=== PATIENT | female | born 1950 | race Caucasian/White ===

== ENCOUNTER 2017-01-12 16:21 | Inpatient (IN) ==
--- NOTE | 2017-01-12 16:42 | Emergency Department Note ---
Disposition Clinical Impression: Community acquired pneumonia, Septic shock Disposition: Admitted As Inpatient Condition: Serious SOB HPI - General Chief Complaint: ED Shortness of Breath/Dyspnea Stated Complaint: sob Time Seen by Provider: 01/12/17 16:28 Source: EMS Limitations: no limitations - History of Present Illness 67 female presented with chief complaint of shortness of breath. Patient was brought here by EMS from urgent care due to having a O2 saturation of 70%. Patient states that her shortness of breath started 2 days ago, is progressively worse, with nonproductive cough and right-sided chest pain that is pleuritic in nature without radiation. She had nausea and 2 bouts of vomiting yesterday. She denies diaphoresis. She states she had a fever of 103 yesterday. She denies any history of blood clots, smoking, lung disease, cardiac disease. Patient is not on any medications. She does not have a primary care provider. She denies having this ever before. - Related Data Home Medications Medication Instructions Recorded Confirmed Tylenol Cold-Flu Severe Liq 10/29/16 10/29/16 Previous Rx's Medication Instructions Recorded Azithromycin 250 - 500 mg PO DAILY #6 tablet 10/29/16 Benzonatate [Tessalon] 200 mg PO TID PRN #30 capsule 10/29/16 Ipratropium/Albuterol Neb [Duoneb] 3 ml IH Q4HR PRN #50 vial.neb 10/29/16 Nebulizer Accessories [Pillow Mask] 1 each MC PRN PRN #1 each 10/29/16 Allergies Allergy/AdvReac Type Severity Reaction Status Date / Time No Known Allergies Allergy Verified 10/29/16 11:40 Review of Systems: Constitutional: Admits fever, denies chills HEENT: Denies headache, vision changes, neck pain, sore throat, rhinorrhea Heart: Admits right chest pain, denies palpitations Lungs: Admits to shortness of breath, cough, denies productive cough Abdomen: Denies abdominal pain. Reports nausea, vomiting Extremities: Denies swelling, pain Neuro: Denies numbness, and tingling Past Medical History - Past Medical History Medical history: Reports: non-contributory - Social History Smoking Status: Former smoker Smokeless Tobacco Status: No Alcohol use: Reports: none Drug use: Reports: none Physical Exam General: Alert and oriented to place time and situation. Moderate distress HEENT: Head atraumatic, normocephalic, EOMI, PERRLA, neck nontender to palpation , absent Lymphadenopathy, Moist Mucous Membranes, Heart: Regular, tachycardic, no murmur Lungs: Diffuse crackles bilaterally Abdomen: Soft nontender, nondistended positive bowel sounds Extremities: Absent pedal edema, Neuro: Cranial nerves II through XII intact, sensation equal bilaterally, strength upper and lower extremity 5/5, alert oriented 3 Vascular: Pedal and radialpulses 2 out of 4 - General Limitations: no limitations General appearance: alert Course Course Narrative: We will get CBC, BMP, troponin, EKG, lactic acid, chest x-ray. Most cores 1.5 for tachycardia. Patient is on supplemental oxygen saturating greater than 90%. - Reevaluation(s) Reevaluation #1: Patient's chest x-ray came back for extensive right lobar pneumonia. She has a bandemia of 18. She has a Creatinine 2.11. She has lactic acidosis of 4.5. Troponin is negative. Patient on presentation was given duo nebs, started on nasal cannula oxygen supplementation. However she had increased work of breathing and was transitioned to BiPAP. Her blood pressure decreases systolics 80. She was resuscitated with 3 L of fluid and now has a blood pressure of 110s to 120 systolic. Patient still remains tachycardic. She was started on vancomycin and Levaquin. Patient also had hypomagnesemia and was replaced with IV magnesium 1 g. Patient denies alcohol use. Patient is in septic shock and will require close attention. She has a [place] catheter for monitoring urine output. Hospitalist was contacted and patient was transferred to the service. Troponin is normal. Vital Signs Temperature 98.4 F 01/12/17 16:22 Pulse Rate 127 01/12/17 16:22 Respiratory Rate 22 01/12/17 16:22 Blood Pressure 104/60 01/12/17 16:22 O2 Sat by Pulse Oximetry 83 01/12/17 16:22 Temperature 99.5 F 01/12/17 20:19 Pulse Rate 112 01/12/17 20:19 Respiratory Rate 30 01/12/17 20:19 Blood Pressure 139/66 01/12/17 20:19 O2 Sat by Pulse Oximetry 95 01/12/17 20:19 Oxygen Delivery Oxygen Delivery Bipap Shortness of Breath/Dyspnea - Medical Records Medical records reviewed: Yes I reviewed the patient's medical records. - Lab Data Lab results reviewed: Yes I reviewed the patient's lab results. Result diagrams: 01/12/17 16:49 01/12/17 16:49 Lab Results 01/12/17 01/12/17 01/12/17 Range/Units 16:49 16:49 16:49 WBC 5.1 (4.3-11.1) K/mcL RBC 5.13 H (3.82-4.97) M/mcL Hgb 15.3 (11.5-15.4) g/dL Hct 46.4 H (35.3-44.9) % MCV 90.4 (83.0-100.0) fL MCH 29.8 (28.0-33.3) pg MCHC 33.0 (31.6-35.5) g/dL RDW 13.2 (11.5-14.5) % Plt Count 190 (140-400) K/mcL MPV 11.1 (9.4-12.4) fL Immature Gran % Test Not Performed Seg Neutrophils % 18.0 % Band Neutrophils % 18.0 H (0-4) % Lymphocytes % 34.0 % Monocytes % 2.0 % Eosinophils % Test Not Performed Basophils % Test Not Performed Metamyelocytes % 20.0 H (0) % Myelocytes % 8.0 H (0) % Neutrophils # 1.8 (1.6-8.9) K/mcL Lymphocytes # 1.7 (0.6-4.6) K/mcL Monocytes # 0.1 (0.0-1.3) K/mcL Eosinophils # Test Not Performed Basophils # Test Not Performed Reactive Lymphocytes Present A (Not Present) Platelet Estimate Normal (Normal) PT (9.4-12.1) Seconds INR APTT (26.0-36.0) Seconds ABG pH (7.32-7.45) pH Units ABG pCO2 (35-45) mmHg ABG pO2 (85-104) mmHg ABG HCO3 (21-27) mEQ/L ABG Total CO2 (20-26) mEq/L ABG O2 Saturation (95-98) % ABG Base Excess (-2.0 to 3.0) mEq/L Blood Gas Modality Inspired O2 % Sodium 139 (136-145) mEq/L Potassium 4.3 (3.5-4.5) mEq/L Chloride 103 (98-109) mEq/L Carbon Dioxide 21 (19-29) mEq/L BUN 32 H (7-20) mg/dL Creatinine 2.11 H (0.57-1.11) mg/dL Est GFR ( Amer) 29 L (> 60) Est GFR (Non-Af Amer) 24 L (> 60) BUN/Creatinine Ratio 15 (6-26) Glucose 138 H (70-99) mg/dL Calculated Osmolality 297 (280-300) Lactic Acid 4.6 H* (0.5-2.2) mmol/L Calcium 8.9 (8.6-10.8) mg/dL Phosphorus 5.9 H (2.3-4.7) mg/dL Magnesium 1.4 L (1.6-2.6) mg/dL Total Bilirubin 2.8 H (0.2-1.2) mg/dL Direct Bilirubin 1.0 H (0.0-0.5) mg/dL Indirect Bilirubin 1.8 H (0.0-1.2) mg/dL AST 17 (5-34) Units/L ALT 19 (0-55) Units/L Alkaline Phosphatase 42 (38-126) Units/L Troponin I (0-0.03) ng/mL B-Natriuretic Peptide (0-100) pg/mL Serum Total Protein 6.8 (6.0-8.3) g/dL Albumin 3.0 L (3.5-5.0) g/dL Globulin 3.8 H (2.4-3.5) g/dL Albumin/Globulin Ratio 0.8 L (1.1-2.2) 01/12/17 01/12/17 01/12/17 Range/Units 16:49 16:49 16:49 WBC (4.3-11.1) K/mcL RBC (3.82-4.97) M/mcL Hgb (11.5-15.4) g/dL Hct (35.3-44.9) % MCV (83.0-100.0) fL MCH (28.0-33.3) pg MCHC (31.6-35.5) g/dL RDW (11.5-14.5) % Plt Count (140-400) K/mcL MPV (9.4-12.4) fL Immature Gran % Seg Neutrophils % % Band Neutrophils % (0-4) % Lymphocytes % % Monocytes % % Eosinophils % Basophils % Metamyelocytes % (0) % Myelocytes % (0) % Neutrophils # (1.6-8.9) K/mcL Lymphocytes # (0.6-4.6) K/mcL Monocytes # (0.0-1.3) K/mcL Eosinophils # Basophils # Reactive Lymphocytes (Not Present) Platelet Estimate (Normal) PT 16.5 H (9.4-12.1) Seconds INR 1.5 APTT 32.3 (26.0-36.0) Seconds ABG pH (7.32-7.45) pH Units ABG pCO2 (35-45) mmHg ABG pO2 (85-104) mmHg ABG HCO3 (21-27) mEQ/L ABG Total CO2 (20-26) mEq/L ABG O2 Saturation (95-98) % ABG Base Excess (-2.0 to 3.0) mEq/L Blood Gas Modality Inspired O2 % Sodium (136-145) mEq/L Potassium (3.5-4.5) mEq/L Chloride (98-109) mEq/L Carbon Dioxide (19-29) mEq/L BUN (7-20) mg/dL Creatinine (0.57-1.11) mg/dL Est GFR ( Amer) (> 60) Est GFR (Non-Af Amer) (> 60) BUN/Creatinine Ratio (6-26) Glucose (70-99) mg/dL Calculated Osmolality (280-300) Lactic Acid (0.5-2.2) mmol/L Calcium (8.6-10.8) mg/dL Phosphorus (2.3-4.7) mg/dL Magnesium (1.6-2.6) mg/dL Total Bilirubin (0.2-1.2) mg/dL Direct Bilirubin (0.0-0.5) mg/dL Indirect Bilirubin (0.0-1.2) mg/dL AST (5-34) Units/L ALT (0-55) Units/L Alkaline Phosphatase (38-126) Units/L Troponin I 0.00 (0-0.03) ng/mL B-Natriuretic Peptide 313 H (0-100) pg/mL Serum Total Protein (6.0-8.3) g/dL Albumin (3.5-5.0) g/dL Globulin (2.4-3.5) g/dL Albumin/Globulin Ratio (1.1-2.2) 01/12/17 Range/Units 17:22 WBC (4.3-11.1) K/mcL RBC (3.82-4.97) M/mcL Hgb (11.5-15.4) g/dL Hct (35.3-44.9) % MCV (83.0-100.0) fL MCH (28.0-33.3) pg MCHC (31.6-35.5) g/dL RDW (11.5-14.5) % Plt Count (140-400) K/mcL MPV (9.4-12.4) fL Immature Gran % Seg Neutrophils % % Band Neutrophils % (0-4) % Lymphocytes % % Monocytes % % Eosinophils % Basophils % Metamyelocytes % (0) % Myelocytes % (0) % Neutrophils # (1.6-8.9) K/mcL Lymphocytes # (0.6-4.6) K/mcL Monocytes # (0.0-1.3) K/mcL Eosinophils # Basophils # Reactive Lymphocytes (Not Present) Platelet Estimate (Normal) PT (9.4-12.1) Seconds INR APTT (26.0-36.0) Seconds ABG pH 7.28 L (7.32-7.45) pH Units ABG pCO2 46 H (35-45) mmHg ABG pO2 70 L (85-104) mmHg ABG HCO3 21.6 (21-27) mEQ/L ABG Total CO2 23.0 (20-26) mEq/L ABG O2 Saturation 91 L (95-98) % ABG Base Excess -5.3 L (-2.0 to 3.0) mEq/L Blood Gas Modality [place]ASK Inspired O2 61 % Sodium (136-145) mEq/L Potassium (3.5-4.5) mEq/L Chloride (98-109) mEq/L Carbon Dioxide (19-29) mEq/L BUN (7-20) mg/dL Creatinine (0.57-1.11) mg/dL Est GFR ( Amer) (> 60) Est GFR (Non-Af Amer) (> 60) BUN/Creatinine Ratio (6-26) Glucose (70-99) mg/dL Calculated Osmolality (280-300) Lactic Acid (0.5-2.2) mmol/L Calcium (8.6-10.8) mg/dL Phosphorus (2.3-4.7) mg/dL Magnesium (1.6-2.6) mg/dL Total Bilirubin (0.2-1.2) mg/dL Direct Bilirubin (0.0-0.5) mg/dL Indirect Bilirubin (0.0-1.2) mg/dL AST (5-34) Units/L ALT (0-55) Units/L Alkaline Phosphatase (38-126) Units/L Troponin I (0-0.03) ng/mL B-Natriuretic Peptide (0-100) pg/mL Serum Total Protein (6.0-8.3) g/dL Albumin (3.5-5.0) g/dL Globulin (2.4-3.5) g/dL Albumin/Globulin Ratio (1.1-2.2) - Radiology Data Radiology results reviewed: Yes I reviewed the patient's radiology results. - EKG Data EKG attestation: Yes I reviewed and interpreted this EKG. EKG results narrative: EKG shows sinus tachycardia with Q waves in inferior leads. No previous EKG to compare. Attestation Statement - Attestation Attestation: I examined this patient and my medical decision-making was reviewed with the SUPERVISOR SPEECH/PA/Advanced Practice Nurse/Resident Physician. I agree with the documented findings, disposition and treatment plan as described except to the extent set forth below. 66-year-old female says ED from urgent care because of difficulty breathing. She says symptoms evolving since last night. She has had cough has been nonproductive. Temperature 102 at home. Right-sided chest pain as well. No vomiting or diarrhea. No joint pain or myalgias. No known ill exposures. No long distance travel. She went to urgent care today was found to have a pulse ox of 77% on room air. She was given DuoNeb treatments and sent directly to the ED. She subjectively reports feeling better. No significant past medical history She quit smoking 15 years ago. Patient is in mild to moderate respiratory distress, tachypnea, hypoxic. Her pressure down to 85/50. Oropharynx is clear mucous membranes dry. Neck is supple. Chest with coarse inspiratory rhonchi in the right lung falcon. Scattered biphasic wheezes. Cardiac exam tachycardic. Abdomen soft nondistended nontender. Extremities warm and dry. Hypotension responded to 3 L of crystalloid infusion. Lactate was elevated at 4.3. Chest x-ray with large right lung infiltrate. She was started on BiPAP to help maintain better oxygenation. She was given broad-spectrum antibiotics and will be admitted to ICU or [facility]. The high probability of a clinically significant, sudden or life threatening deterioration of the [cardiopulmonary] system(s) required my full and direct attention, intervention and personal management. The aggregate critical care time was [40] minutes. This time is in addition to time spent performing reported procedures but includes the following: [x] Data Review and interpretation [x] Patient assessment and monitoring of vital signs [x] Documentation [x] Medication orders and management
[2017-01-12 16:59] LABS: Hematocrit 46.4 % (35.3-44.9); Hemoglobin 15.3 g/dL (11.5-15.4); Mean Corpuscular Hemoglobin 29.8 pg (28.0-33.3); Mean Corpuscular Volume 90.4 fL (83.0-100.0); Mean Platelet Volume 11.1 fL (9.4-12.4); Platelet Count 190 K/mcL (140-400); Red Blood Count 5.13 M/mcL (3.82-4.97); Red Cell Distribution Width 13.2 % (11.5-14.5)
[2017-01-12] MEDS: 0.9 % Sodium Chloride 1,000 ML IVC SCH ×3 (17:07→21:46)
[2017-01-12 17:12] LABS: Calcium 8.9 mg/dL (8.6-10.8); Potassium 4.3 mEq/L (3.5-4.5)
[2017-01-12 17:20] LABS: INR 1.5; Prothrombin Time 16.5 Seconds (9.4-12.1)
[2017-01-12 17:23] LABS: Activated Partial Thrombo Time 32.3 Seconds (26.0-36.0)
[2017-01-12 17:26] LABS: Albumin/Globulin Ratio 0.8 (1.1-2.2); Bilirubin,Indirect 1.8 mg/dL (0.0-1.2); Bilirubin,Total 2.8 mg/dL (0.2-1.2); Globulin 3.8 g/dL (2.4-3.5); Magnesium 1.4 mg/dL (1.6-2.6); Phosphorous 5.9 mg/dL (2.3-4.7); Total Protein 6.8 g/dL (6.0-8.3)
[2017-01-12 17:28] LABS: ABG Base Excess -5.3 mEq/L (-2.0 to 3.0); ABG HCO3 21.6 mEQ/L (21-27); ABG Oxygen Saturation 91 % (95-98); ABG PCO2 46 mmHg (35-45); ABG PH 7.28 pH Units (7.32-7.45); ABG PO2 70 mmHg (85-104)
[2017-01-12 17:29] LABS: Blood Gas FiO2 61 %
[2017-01-12 17:38] LABS: Lymphocytes # 1.7 K/mcL (0.6-4.6); Monocytes # 0.1 K/mcL (0.0-1.3); Neutrophils # 1.8 K/mcL (1.6-8.9)
[2017-01-12 17:40] LABS: Platelet Estimate Normal (Normal)
[2017-01-12 17:45] LABS: Reactive Lymphocytes Present (Not Present)
[2017-01-12] MEDS ORDERED: Piperacillin/Tazobactam 3.375 GM in D5% in Water (Mini-Bag+) 100 ML IVPB ONE (17:53)
[2017-01-12] MEDS ORDERED: Vancomycin 1,000 MG in D5% in Water 250 ML IVPB ONE (17:53)
[2017-01-12] MEDS ORDERED: Magnesium Sulfate 1 GM in D5% in Water 100 ML IVPB ONE (18:08)
[2017-01-12] MEDS ORDERED: 0.9 % Sodium Chloride 1,000 ML IVC ONE (19:10)
[2017-01-12 19:25] LABS: Bilirubin,Urine Small (Negative); Blood,Urine Negative (Negative); Clarity,Urine Cloudy (Clear); Color,Urine Dark Yellow (Yellow); Glucose,Urine (UA) Normal (Normal); Ketones,Urine Negative (Negative); Leukocyte Esterase,Urine Negative (Negative); Nitrite,Urine Negative (Negative); PH,Urine 5.5 pH Units (5.0-8.0); Protein,Urine 30 mg/dL (Neg-Trace); Specific Gravity,Urine 1.025 (1.010-1.025); Urobilinogen,Urine Normal (Normal)
[2017-01-12 19:28] LABS: Squamous Epithelial Cell,Urine Many per lpf (None-Few)
[2017-01-12 19:42] LABS: Bacteria,Urine Few per hpf (None-Few); Granular Casts,Urine Few per lpf (None Seen); Hyaline Casts,Urine Moderate per lpf (None-Few)
[2017-01-12] MEDS ORDERED: Naloxone 0.4 MG/ML INJ IVP PRN (22:43)
[2017-01-12] MEDS ORDERED: Acetaminophen 325 MG TABLET PO PRN (22:43)
[2017-01-12] MEDS ORDERED: Levalbuterol 1 PUFF INHALER IH PRN (22:49)
--- NOTE | 2017-01-12 22:52 | Internal Med History&Physical ---
Date of Encounter: 01/12/17 Time of Encounter: 21:30 Assessment and Plan (1) Pneumonia Current visit: Yes Status: Acute Chest x-ray reported bilateral/multifocal pneumonia. Pt received vancomycin and zosyn in the ER. Will treat for community acquired pneumonia, with levofloxacin and ceftriaxone. We will obtain sputum cultures. Consider pulmonary consultation. Qualifiers: Pneumonia type: due to unspecified organism Laterality: bilateral Lung location: unspecified part of lung Qualified Code(s): J18.9 - Pneumonia, unspecified organism (2) Acute respiratory failure Current visit: Yes Status: Acute Likely due to pneumonia. Pt is on BiPAP therapy and is tolerating well. Pulmonary consult Qualifiers: Respiratory failure complication: hypoxia Qualified Code(s): J96.01 - Acute respiratory failure with hypoxia (3) Sepsis Current visit: Yes Status: Acute Due to pneumonia. Pt has lactic acidosis. Treated with IV fluids and antibiotics Qualifiers: Sepsis type: sepsis due to unspecified organism Qualified Code(s): A41.9 - Sepsis, unspecified organism (4) Lactic acid acidosis Current visit: Yes Status: Acute Likely due to pneumonia and sepsis. Lactic acid level is improving. (5) DIANA (acute kidney injury) Current visit: Yes Status: Acute Likely due to pneumonia/sepsis. Patient does not know of any prior kidney disease. Continue with IV fluids and monitor renal function. (6) Metabolic acidosis Current visit: Yes Status: Acute Likely due to lactic acidosis and acute kidney injury. Pt does not seem to have respiratory compensation, due to pneumonia (7) Hypomagnesemia Current visit: Yes Status: Acute Replenish and monitor (8) DVT prophylaxis Current visit: Yes Status: Acute SubQ Heparin Internal Medicine - H&P: HPI Chief complaint: Shortness of breath Admitted From: Emergency Dept Plans for Post Hospital Care: Home History of present illness: Ms. Estrada is a 66 year old female with no significant past medical history, presented with progressive shortness of breath that started 2 days ago, is progressively worse, with nonproductive cough and right-sided constant / pleuritic chest pain without radiation. She had nausea and 2 bouts of vomiting yesterday. She apparently had fever and chills yesterday. She denies abdominal pain, dysuria, hematuria, bowel problems. Patient is not on any home medications. She does not have a primary care provider. She was seen in the urgent care, where she had O2 sats of 77% and was brought to the ER by EMS. In the ER, CXR was thought to have extensive right sided pneumonia. Labs showed bandemia of 18, Creatinine 2.11, lactic acidosis of 4.5. Patient was given duo nebs, started on nasal cannula oxygen supplementation and transitioned to BiPAP. She was hypotensive with systolic blood pressure of 80 - she was resuscitated with 3 L of fluid. She was started on vancomycin and Levaquin. She is admitted to the hospitalist service for further management. Past Med Surg Social Fam HX - Past Medical History Medical history: non-contributory - Social History Smoking Status: Former smoker Smokeless Tobacco Status: No Alcohol use: none Drug use: none - Family History Father Adopted: No Living Status: Cause of : Breast6 cancer Hx Family Cardiac Disorders: No Hx Family Respiratory Disorders: No Hx Family Cancer: Yes Hx Family Genitourinary Disorders: No Hx Family Endocrine Disorder: No Hx Family Musculoskeletal Disorders: No Hx Family Neuromuscular Disorders: No Hx Family Neurologic Disorders: No Hx Family HEENT Disorders: No Hx Family Reproductive Disorders: No Hx Family Psychosocial Disorders: No Hx Family Medical Disorders: No Internal Medicine - H&P: Meds Azithromycin 250 - 500 mg PO DAILY #6 tablet 10/29/16 [Rx] Benzonatate [Tessalon] 200 mg PO TID PRN #30 capsule 10/29/16 [Rx] Ipratropium/Albuterol Neb [Duoneb] 3 ml IH Q4HR PRN #50 vial.neb 10/29/16 [Rx] Nebulizer Accessories [Pillow Mask] 1 each MC PRN PRN #1 each 10/29/16 [Rx] Tylenol Cold-Flu Severe Liq 10/29/16 [History] Allergies No Known Allergies Allergy (Verified 10/29/16 11:40) All Systems PM: A 10-system review of systems was performed and is negative for pertinent findings except as documented above in the HPI. - Constitutional Vitals: Temp Pulse Resp BP Pulse Ox 99.5 F 112 30 139/66 95 01/12/17 20:19 01/12/17 20:19 01/12/17 20:19 01/12/17 20:19 01/12/17 20:19 Exam: General: BiPAP in place. Not in acute distress at the time of my evaluation. HEENT: BiPAP in place. No conjunctival palor or scleral icterus Neck: No obvious neck swellings Lungs: Crackles in the right lower chest Cardiac: Regular rate and rhythm. No significant murmurs Abdomen: Soft, non tender. Bowel sounds present Neurological: Alert and oriented. No gross localizing deficits Psych: Not aggressive or agitated Extremities: no significant leg edema Skin: No generalized rash Internal Med - H&P Results - Labs CBC & Chem 7: 01/12/17 16:49 01/12/17 16:49 Labs: Urine 01/12/17 Range/Units 19:12 Urine Color Dark Yellow (Yellow) Urine Clarity Cloudy A (Clear) Urine pH 5.5 (5.0-8.0) pH Units Ur Specific [place] 1.025 (1.010-1.025) Urine Protein 30 H (Neg-Trace) mg/dL Urine Glucose (UA) Normal (Normal) mg/dL - EKG Data -: EKG Interpreted by Myself EKG shows normal: sinus rhythm Rate: tachycardia - EKG Data EKG comments: Q waves in III and AVF 01/13/17 01:01 - Impressions ITS Impressions Chest X-Ray 01/12/17 16:28 IMPRESSION: 1. Bilateral airspace disease concerning for multifocal pneumonia. Recommend chest radiograph 8 weeks to confirm resolution. D/ / Omero Parra MD / Omero Parra MD Interpreting Provider: Omero Parra MD
[2017-01-12] MEDS ORDERED: Vancomycin 1,500 MG in D5% in Water 250 ML IVPB SCH (23:00)
[2017-01-12] MEDS: Ipratropium/Albuterol Neb 3 ML IH SCH (23:12)
[2017-01-12] MEDS: Famotidine 20 MG/2 ML VIAL IVP SCH (23:59)
[2017-01-13] MEDS ORDERED: Piperacillin/Tazobactam 3.375 GM in D5% in Water (Mini-Bag+) 100 ML IVPB SCH
[2017-01-13] MEDS ORDERED: Vancomycin 500 MG in D5% in Water (Mini-Bag+) 100 ML IVPB ONE (00:30)
[2017-01-13] MEDS ORDERED: Vancomycin 1,500 MG in D5% in Water 250 ML IVPB SCH (00:30)
[2017-01-13] MEDS: *HR* Heparin 5,000 UNIT/ML VIAL SQ SCH ×4 (00:47→22:28)
[2017-01-13] MEDS ORDERED: Levofloxacin 500 MG/100 ML 500 MG/100 ML BAG IVPB ONE (01:20)
[2017-01-13 01:29] LABS: Hematocrit 41.1 % (35.3-44.9); Mean Corpuscular HGB Conc 32.8 g/dL (31.6-35.5); Mean Corpuscular Hemoglobin 29.8 pg (28.0-33.3); Mean Corpuscular Volume 90.7 fL (83.0-100.0); Platelet Count 138 K/mcL (140-400); Red Blood Count 4.53 M/mcL (3.82-4.97); Red Cell Distribution Width 13.3 % (11.5-14.5)
[2017-01-13 01:31] LABS: Hemoglobin 13.5 g/dL (11.5-15.4)
[2017-01-13 01:42] LABS: Magnesium 1.6 mg/dL (1.6-2.6); Potassium 4.1 mEq/L (3.5-4.5)
[2017-01-13 01:52] LABS: Large Platelets Present (Not Present); Lymphocytes # 0.6 K/mcL (0.6-4.6); Monocytes # 0.4 K/mcL (0.0-1.3); Neutrophils # 4.1 K/mcL (1.6-8.9); Platelet Estimate Slight Decrease (Normal); Reactive Lymphocytes Present (Not Present)
[2017-01-13] MEDS: Ipratropium/Albuterol Neb 3 ML IH SCH ×4 (03:44→22:26)
[2017-01-13] MEDS: Famotidine 20 MG/2 ML VIAL IVP SCH (08:22)
[2017-01-13] MEDS: 0.9 % Sodium Chloride 1,000 ML IVC SCH (11:00)
--- NOTE | 2017-01-13 11:43 | Pulmonology Consult Note ---
Date of Encounter: 01/13/17 Time of Encounter: 07:55 Assessment and Plan (1) Acute respiratory failure with hypoxia Current Visit: Yes Status: Acute Acute respiratory failure with hypoxia secondary to severe community-acquired pneumonia and development of ARDS. Continue antibiotic therapy directed towards treatment of community-acquired pathogens. Continue noninvasive ventilatory support. Discontinue IV fluids, empiric diuresis and addition of empiric steroids to hasten recovery. The patient may require intubation and invasive ventilatory support for clinical status does not improve over the next several hours. I reviewed the situation with the patient and family. Provision of DVT and ulcer prophylaxis as well. Giselle Leos Code(s): J96.01 - Acute respiratory failure with hypoxia SNOMED Code(s): 90911221, 030336117 History of Present Illness Consult date: 01/13/17 Chief complaint: Acute respiratory failure with hypoxia History of present illness: Cielo is a 66-year-old female noncigarette smoker does not have reportedly any well- defined chronic medical conditions. She admits to the development of fever possibly chills cough nausea and vomiting approximately 48-72 hours prior to her evaluation through the emergency room. The time of evaluation, the patient was hypoxic had an obvious increase in work of breathing. Radiographic evaluation disclosed presence of bilateral infiltrates. The patient was thought to have acute respiratory failure with hypoxia due to severe community- acquired pneumonia, evolving ARDS and sepsis. She was admitted to the monitored floor with noninvasive ventilatory support. At the time my evaluation, the patient remained to And required high FiO2 supplementation. Hence, I transferred the patient to the intensive care unit. Past Med Surg Social Fam HX - Past Medical History Medical history: non-contributory - Social History Smoking Status: Never smoker Smokeless Tobacco Status: No Alcohol use: none Drug use: none - Family History Father Adopted: No Living Status: Cause of : Breast6 cancer Hx Family Cardiac Disorders: No Hx Family Respiratory Disorders: No Hx Family Cancer: Yes Hx Family Genitourinary Disorders: No Hx Family Endocrine Disorder: No Hx Family Musculoskeletal Disorders: No Hx Family Neuromuscular Disorders: No Hx Family Neurologic Disorders: No Hx Family HEENT Disorders: No Hx Family Reproductive Disorders: No Hx Family Psychosocial Disorders: No Hx Family Medical Disorders: No Medications and Allergies Azithromycin 250 - 500 mg PO DAILY #6 tablet 10/29/16 [Rx] Benzonatate [Tessalon] 200 mg PO TID PRN #30 capsule 10/29/16 [Rx] Ipratropium/Albuterol Neb [Duoneb] 3 ml IH Q4HR PRN #50 vial.neb 10/29/16 [Rx] Nebulizer Accessories [Pillow Mask] 1 each MC PRN PRN #1 each 10/29/16 [Rx] Tylenol Cold-Flu Severe Liq 10/29/16 [History] Allergies No Known Allergies Allergy (Verified 10/29/16 11:40) All Systems: A 10-system review of systems was performed and is negative for pertinent findings except as documented above in the HPI. - Cardiovascular Cardiovascular: as per HPI Physical Examination Vital Signs: Vital Signs, Last 4 Hours Pulse Ox 01/13/17 08:28 93 General appearance: no acute distress, other (Obese female appears her stated age she is awake and alert she is in a moderate degree of respiratory distress, she is currently wearing a full face mask device for provision of noninvasive ventilatory support, vitals reviewed.) Eyes: nonicteric Neck: no JVD Effort: other (Moderately labored) Auscultation: bilateral: rales, rhonchi Cardiovascular: regular rate and rhythm Gastrointestinal: normoactive bowel sounds, non-distended Integumentary: normal Extremities: pink and warm, other (Intact pulses) Musculoskeletal: no deformities normal mental status, non-focal exam Results - Laboratory Findings CBC and BMP: 01/13/17 01:18 01/13/17 01:18 ABG ABG pH 7.28 pH Units (7.32-7.45) L 01/12/17 17:22 ABG pCO2 46 mmHg (35-45) H 01/12/17 17:22 ABG pO2 70 mmHg (85-104) L 01/12/17 17:22 ABG O2 Saturation 91 % (95-98) L 01/12/17 17:22 PT/INR, D-dimer PT 16.5 Seconds (9.4-12.1) H 01/12/17 16:49 Abnormal lab findings: Abnormal lab results Plt Count 138 K/mcL (140-400) L 01/13/17 01:18 Band Neutrophils % 16.0 % (0-4) H 01/13/17 01:18 Metamyelocytes % 16.0 % (0) H 01/13/17 01:18 Myelocytes % 8.0 % (0) H 01/12/17 16:49 Reactive Lymphocytes Present (Not Present) A 01/13/17 01:18 Platelet Estimate Slight Decrease (Normal) L 01/13/17 01:18 Large Platelets Present (Not Present) A 01/13/17 01:18 PT 16.5 Seconds (9.4-12.1) H 01/12/17 16:49 ABG pH 7.28 pH Units (7.32-7.45) L 01/12/17 17:22 ABG pCO2 46 mmHg (35-45) H 01/12/17 17:22 ABG pO2 70 mmHg (85-104) L 01/12/17 17:22 ABG O2 Saturation 91 % (95-98) L 01/12/17 17:22 ABG Base Excess -5.3 mEq/L (-2.0 to 3.0) L 01/12/17 17:22 BUN 34 mg/dL (7-20) H 01/13/17 01:18 Creatinine 1.39 mg/dL (0.57-1.11) H 01/13/17 01:18 Est GFR ( Amer) 46 (> 60) L 01/13/17 01:18 Est GFR (Non-Af Amer) 38 (> 60) L 01/13/17 01:18 Glucose 118 mg/dL (70-99) H 01/13/17 01:18 POC Glucose 94 (58-89) H 01/13/17 11:21 Calcium 8.0 mg/dL (8.6-10.8) L 01/13/17 01:18 Phosphorus 5.9 mg/dL (2.3-4.7) H 01/12/17 16:49 Total Bilirubin 2.8 mg/dL (0.2-1.2) H 01/12/17 16:49 Direct Bilirubin 1.0 mg/dL (0.0-0.5) H 01/12/17 16:49 Indirect Bilirubin 1.8 mg/dL (0.0-1.2) H 01/12/17 16:49 C-Reactive Protein 402 mg/L (Less than 5) H 01/13/17 01:18 B-Natriuretic Peptide 313 pg/mL (0-100) H 01/12/17 16:49 Albumin 3.0 g/dL (3.5-5.0) L 01/12/17 16:49 Globulin 3.8 g/dL (2.4-3.5) H 01/12/17 16:49 Albumin/Globulin Ratio 0.8 (1.1-2.2) L 01/12/17 16:49 Urine Clarity Cloudy (Clear) A 01/12/17 19:12 Urine Protein 30 mg/dL (Neg-Trace) H 01/12/17 19:12 Urine Bilirubin Small (Negative) H 01/12/17 19:12 Urine Microscopic RBC 3-5 per hpf (0-3) H 01/12/17 19:12 Urine Microscopic WBC 5-15 per hpf (0-3) H 01/12/17 19:12 Ur Squamous Epith Cells Many per lpf (None-Few) H 01/12/17 19:12 Hyaline Casts Moderate per lpf (None-Few) H 01/12/17 19:12 Granular Casts Few per lpf (None Seen) H 01/12/17 19:12 Ur Culture Indicated? YES (NO) A 01/12/17 19:12 - Diagnostic Findings Chest x-ray: other (Chest radiograph revealed bilateral alveolar interstitial infiltrates.) - Clinical Findings Intake & Output: Intake & Output 01/12/17 01/13/17 01/13/17 23:59 07:59 15:59 Intake Total 1452 / 2452 1360 / 1360 0 / 0 Output Total 600 / 600 300 / 300 Balance 1452 / 2452 760 / 760 -300 / -300 Weight 96.7 kg Consult Discharge Plan - Plan Referrals: NO,PCP [Primary Care Provider] -
[2017-01-13] MEDS: MethylPREDNISolone 40 MG/ML VIAL IVP SCH ×3 (12:18→23:44)
[2017-01-13] MEDS: Furosemide 40 MG/4 ML VIAL IVP SCH ×3 (12:52→20:17)
--- NOTE | 2017-01-13 17:55 | Electrocardiograph Report ---
[place] [id number] Test Date: 2017-01-12 Pat Name: Amanda Estrada Department: 105 Room: [facility] Gender: F Intake Nurse: MILI : [id number] Requested By: Aldo Spence Order Number: [id number] Reading MD: Angle Colvin Measurements Intervals Railroad Rate: 121 P: WA: 0 QRS: 32 QRSD: 92 T: 101 QT: 301 QTc: 373 Interpretive Statements SINUS TACHYCARDIA NONSPECIFIC T-WAVE ABNORMALITY Electronically Signed On 01-13-2017 17:53:23 EDT by Angle Colvin
[2017-01-14] MEDS ORDERED: Vancomycin 1,500 MG in D5% in Water 250 ML IVPB SCH (01:00)
[2017-01-14] MEDS: Levofloxacin 250 MG/50 ML 250 MG/50 ML BAG IVPB SCH ×2 (01:28→08:06)
[2017-01-14] MEDS: Ipratropium/Albuterol Neb 3 ML IH SCH ×4 (05:38→23:06)
[2017-01-14] MEDS: MethylPREDNISolone 40 MG/ML VIAL IVP SCH ×4 (05:43→23:45)
[2017-01-14] MEDS: *HR* Heparin 5,000 UNIT/ML VIAL SQ SCH ×3 (05:43→21:35)
--- NOTE | 2017-01-14 07:33 | Pulmonology Progress Note ---
Date of Encounter: 01/14/17 Time of Encounter: 07:33 Assessment and Plan (1) Acute respiratory failure with hypoxia Current Visit: Yes Status: Acute This is improving continue positive airway pressure support as needed wean FiO2 to keep saturation around 92% cont to diurese with lasix as tolerated. (2) Community acquired pneumonia Current Visit: Yes Status: Acute Patient is being treated for community acquired pneumonia the organism at this point remains unknown cultures are pending given improvement I do not feel that double coverage for CAP with Ceftriaxone and Levaquin is necessary and will stop Ceftriaxone. she is also receiving steroids for severe CAP. (3) DVT prophylaxis Current Visit: Yes Status: Acute Chemical DVT prophylaxis given Subjective Principal diagnosis: Pneumonia Interval history: Over the course of the morning patient's respiratory status is improved markedly and she has been able to tolerate time off bilevel positive airway pressure support. She is not in any distress at this time and says overall she is feeling much better. Objective PUL Vital signs: Last Vital Signs Temp 97 F L 01/14/17 04:19 Pulse 92 01/14/17 07:12 Resp 26 01/14/17 07:12 BP 149/85 01/14/17 07:12 Pulse Ox 96 01/14/17 07:12 General appearance: no acute distress, alert, other Eyes: nonicteric ENT: oropharynx moist Effort: mildly labored Auscultation: bilateral: diminished breath sounds Cardiovascular: regular rate and rhythm Gastrointestinal: normoactive bowel sounds Integumentary: normal Extremities: no cyanosis, no edema non-focal exam, pupils equal and round mood appropriate Results - Laboratory Findings CBC and BMP: 01/14/17 08:27 01/14/17 08:27 ABG ABG pH 7.28 pH Units (7.32-7.45) L 01/12/17 17:22 ABG pCO2 46 mmHg (35-45) H 01/12/17 17:22 ABG pO2 70 mmHg (85-104) L 01/12/17 17:22 ABG O2 Saturation 91 % (95-98) L 01/12/17 17:22 PT/INR, D-dimer PT 16.5 Seconds (9.4-12.1) H 01/12/17 16:49 Abnormal lab findings: Abnormal lab results Plt Count 138 K/mcL (140-400) L 01/13/17 01:18 Band Neutrophils % 16.0 % (0-4) H 01/13/17 01:18 Metamyelocytes % 16.0 % (0) H 01/13/17 01:18 Myelocytes % 8.0 % (0) H 01/12/17 16:49 Reactive Lymphocytes Present (Not Present) A 01/13/17 01:18 Platelet Estimate Slight Decrease (Normal) L 01/13/17 01:18 Large Platelets Present (Not Present) A 01/13/17 01:18 PT 16.5 Seconds (9.4-12.1) H 01/12/17 16:49 ABG pH 7.28 pH Units (7.32-7.45) L 01/12/17 17:22 ABG pCO2 46 mmHg (35-45) H 01/12/17 17:22 ABG pO2 70 mmHg (85-104) L 01/12/17 17:22 ABG O2 Saturation 91 % (95-98) L 01/12/17 17:22 ABG Base Excess -5.3 mEq/L (-2.0 to 3.0) L 01/12/17 17:22 BUN 34 mg/dL (7-20) H 01/13/17 01:18 Creatinine 1.39 mg/dL (0.57-1.11) H 01/13/17 01:18 Est GFR ( Amer) 46 (> 60) L 01/13/17 01:18 Est GFR (Non-Af Amer) 38 (> 60) L 01/13/17 01:18 Glucose 118 mg/dL (70-99) H 01/13/17 01:18 POC Glucose 114 (58-89) H 01/13/17 15:57 Calcium 8.0 mg/dL (8.6-10.8) L 01/13/17 01:18 Phosphorus 5.9 mg/dL (2.3-4.7) H 01/12/17 16:49 Total Bilirubin 2.8 mg/dL (0.2-1.2) H 01/12/17 16:49 Direct Bilirubin 1.0 mg/dL (0.0-0.5) H 01/12/17 16:49 Indirect Bilirubin 1.8 mg/dL (0.0-1.2) H 01/12/17 16:49 C-Reactive Protein 402 mg/L (Less than 5) H 01/13/17 01:18 B-Natriuretic Peptide 313 pg/mL (0-100) H 01/12/17 16:49 Albumin 3.0 g/dL (3.5-5.0) L 01/12/17 16:49 Globulin 3.8 g/dL (2.4-3.5) H 01/12/17 16:49 Albumin/Globulin Ratio 0.8 (1.1-2.2) L 01/12/17 16:49 Urine Clarity Cloudy (Clear) A 01/12/17 19:12 Urine Protein 30 mg/dL (Neg-Trace) H 01/12/17 19:12 Urine Bilirubin Small (Negative) H 01/12/17 19:12 Urine Microscopic RBC 3-5 per hpf (0-3) H 01/12/17 19:12 Urine Microscopic WBC 5-15 per hpf (0-3) H 01/12/17 19:12 Ur Squamous Epith Cells Many per lpf (None-Few) H 01/12/17 19:12 Hyaline Casts Moderate per lpf (None-Few) H 01/12/17 19:12 Granular Casts Few per lpf (None Seen) H 01/12/17 19:12 Ur Culture Indicated? YES (NO) A 01/12/17 19:12 - Microbiology Findings Microbiology Findings: Microbiology, Last 48 Hours 01/13/17 17:41 Influenza Types A,B Antigen (BRANDI) - Final Nasopharyngeal 01/12/17 19:12 Urine Culture - Final Urine,Clean Catch No growth. - Clinical Findings Intake & Output: Intake & Output 01/13/17 01/13/17 01/14/17 15:59 23:59 07:59 Intake Total 0 / 0 150 / 150 Output Total 1900 / 1900 600 / 600 1300 / 1300 Balance -1900 / -1900 -600 / -600 -1150 / -1150 Weight 96.7 kg 95.935 kg Consult Discharge Plan - Plan Referrals: NO,PCP [Primary Care Provider] -
[2017-01-14 07:44] LABS: Hematocrit 39.4 % (35.3-44.9); Hemoglobin 13.2 g/dL (11.5-15.4); Mean Corpuscular HGB Conc 33.5 g/dL (31.6-35.5); Mean Corpuscular Hemoglobin 30.3 pg (28.0-33.3); Mean Corpuscular Volume 90.6 fL (83.0-100.0); Mean Platelet Volume 11.6 fL (9.4-12.4); Platelet Count 168 K/mcL (140-400); Red Blood Count 4.35 M/mcL (3.82-4.97); Red Cell Distribution Width 13.4 % (11.5-14.5)
[2017-01-14] MEDS: Furosemide 40 MG/4 ML VIAL IVP SCH ×2 (08:06→16:44)
[2017-01-14] MEDS: Famotidine 20 MG/2 ML VIAL IVP SCH (08:06)
[2017-01-14 08:26] LABS: BUN/Creatinine Ratio 34 (6-26); Calcium 9.4 mg/dL (8.6-10.8); Carbon Dioxide 31 mEq/L (19-29); Chloride 101 mEq/L (98-109); Glucose 131 mg/dL (70-99); Lymphocytes # 1.3 K/mcL (0.6-4.6); Macrocytosis Present (Not Present); Monocytes # 0.8 K/mcL (0.0-1.3); Neutrophils # 10.7 K/mcL (1.6-8.9); Osmolality,Calculated 304 (280-300); Platelet Estimate Normal (Normal); Potassium 3.8 mEq/L (3.5-4.5); Sodium 142 mEq/L (136-145); eGFR For African Americans > 60 (> 60); eGFR For Non-African Americans 51 (> 60)
[2017-01-14 08:27] LABS: Blood Urea Nitrogen 37 mg/dL (7-20); Polychromasia 1+ (Not Present); Spherocytes 1+ (Not Present)
[2017-01-14 08:35] LABS: Hematocrit 40.6 % (35.3-44.9); Hemoglobin 13.6 g/dL (11.5-15.4); Mean Corpuscular HGB Conc 33.5 g/dL (31.6-35.5); Mean Corpuscular Volume 89.6 fL (83.0-100.0); Mean Platelet Volume 11.2 fL (9.4-12.4); Platelet Count 181 K/mcL (140-400); Red Blood Count 4.53 M/mcL (3.82-4.97); Red Cell Distribution Width 13.5 % (11.5-14.5)
[2017-01-14 08:49] LABS: Albumin/Globulin Ratio 0.5 (1.1-2.2); Globulin 4.6 g/dL (2.4-3.5); Potassium 3.8 mEq/L (3.5-4.5); Total Protein 6.9 g/dL (6.0-8.3)
[2017-01-14 08:50] LABS: Albumin 2.3 g/dL (3.5-5.0); Bilirubin,Total 0.9 mg/dL (0.2-1.2); Calcium 9.7 mg/dL (8.6-10.8)
[2017-01-15 04:42] LABS: Basophils # 0.1 K/mcL (0.0-0.2); Basophils % 0.8 %; Hemoglobin 13.3 g/dL (11.5-15.4); Lymphocytes # 1.3 K/mcL (0.6-4.6); Lymphocytes % 7.4 %; Mean Corpuscular HGB Conc 34.1 g/dL (31.6-35.5); Mean Corpuscular Hemoglobin 30.7 pg (28.0-33.3); Mean Corpuscular Volume 90.1 fL (83.0-100.0); Mean Platelet Volume 11.7 fL (9.4-12.4); Monocytes # 1.5 K/mcL (0.0-1.3); Monocytes % 8.8 %; Neutrophils # 13.3 K/mcL (1.6-8.9); Platelet Count 196 K/mcL (140-400); Red Blood Count 4.33 M/mcL (3.82-4.97); Red Cell Distribution Width 13.4 % (11.5-14.5)
[2017-01-15 05:05] LABS: Calcium 9.5 mg/dL (8.6-10.8)
[2017-01-15] MEDS: Ipratropium/Albuterol Neb 3 ML IH SCH ×4 (05:21→22:31)
[2017-01-15 06:01] LABS: Platelet Estimate Normal (Normal)
[2017-01-15] MEDS: *HR* Heparin 5,000 UNIT/ML VIAL SQ SCH ×3 (06:54→21:11)
[2017-01-15] MEDS: MethylPREDNISolone 40 MG/ML VIAL IVP SCH ×3 (06:54→17:12)
[2017-01-15] MEDS ORDERED: Piperacillin/Tazobactam 3.375 GM in D5% in Water (Mini-Bag+) 100 ML IVPB SCH (08:00)
[2017-01-15] MEDS: Furosemide 40 MG/4 ML VIAL IVP SCH (08:45)
[2017-01-15] MEDS ORDERED: Levofloxacin 750 MG/150 ML 750 MG/150 ML BAG IVPB SCH (09:00)
--- NOTE | 2017-01-15 09:59 | Pulmonology Progress Note ---
Date of Encounter: 01/15/17 Time of Encounter: 09:59 Assessment and Plan (1) Acute respiratory failure with hypoxia Current Visit: Yes Status: Acute This is improving continue positive airway pressure support as needed wean FiO2 to keep saturation around 92% hold lasix today PAP at night as tolerated (2) Community acquired pneumonia Current Visit: Yes Status: Acute Patient is being treated for community acquired pneumonia the organism at this point remains unknown cultures are pending given improvement Cont levaquin to complete 7 day course taper steroids over next 48hours (this is the likely cause of her persistent leuckocytosis (3) DVT prophylaxis Current Visit: Yes Status: Acute Chemical DVT prophylaxis given Patient is stable for transfer from ICU to medical/telemetry bed for ongoing care I called report to the admitting hospitalist Dr. Mckeon Subjective Principal diagnosis: Pneumonia Interval history: Patient did well overnight she was resting comfortably when I visited with her this morning she did wear positive airway pressure overnight but saturations of inappropriate on nasal cannula still requiring fairly high levels of O2 but work of breathing is no increased. Objective PUL Vital signs: Last Vital Signs Temp 96.6 F L 01/15/17 07:54 Pulse 94 01/15/17 09:00 Resp 20 01/15/17 09:00 BP 149/91 01/15/17 09:00 Pulse Ox 94 01/15/17 09:00 General appearance: no acute distress Auscultation: bilateral: diminished breath sounds Cardiovascular: regular rate and rhythm Integumentary: normal Extremities: no edema normal mental status, non-focal exam Results - Laboratory Findings CBC and BMP: 01/15/17 03:18 01/15/17 03:18 ABG ABG pH 7.28 pH Units (7.32-7.45) L 01/12/17 17:22 ABG pCO2 46 mmHg (35-45) H 01/12/17 17:22 ABG pO2 70 mmHg (85-104) L 01/12/17 17:22 ABG O2 Saturation 91 % (95-98) L 01/12/17 17:22 PT/INR, D-dimer PT 16.5 Seconds (9.4-12.1) H 01/12/17 16:49 Abnormal lab findings: Abnormal lab results WBC 17.0 K/mcL (4.3-11.1) H 01/15/17 03:18 Immature Gran % 5.0 % (0-4) H 01/15/17 03:18 Band Neutrophils % 12.0 % (0-4) H 01/14/17 07:26 Metamyelocytes % 16.0 % (0) H 01/13/17 01:18 Myelocytes % 8.0 % (0) H 01/12/17 16:49 Neutrophils # 13.3 K/mcL (1.6-8.9) H 01/15/17 03:18 Monocytes # 1.5 K/mcL (0.0-1.3) H 01/15/17 03:18 Reactive Lymphocytes Present (Not Present) A 01/13/17 01:18 Large Platelets Present (Not Present) A 01/13/17 01:18 Polychromasia 1+ (Not Present) A 01/14/17 07:26 Macrocytosis Present (Not Present) A 01/14/17 07:26 Spherocytes 1+ (Not Present) A 01/14/17 07:26 PT 16.5 Seconds (9.4-12.1) H 01/12/17 16:49 ABG pH 7.28 pH Units (7.32-7.45) L 01/12/17 17:22 ABG pCO2 46 mmHg (35-45) H 01/12/17 17:22 ABG pO2 70 mmHg (85-104) L 01/12/17 17:22 ABG O2 Saturation 91 % (95-98) L 01/12/17 17:22 ABG Base Excess -5.3 mEq/L (-2.0 to 3.0) L 01/12/17 17:22 Potassium 3.0 mEq/L (3.5-4.5) L 01/15/17 03:18 Carbon Dioxide 34 mEq/L (19-29) H 01/15/17 03:18 BUN 50 mg/dL (7-20) H D 01/15/17 03:18 Est GFR (Non-Af Amer) 49 (> 60) L 01/15/17 03:18 BUN/Creatinine Ratio 45 (6-26) H 01/15/17 03:18 Glucose 149 mg/dL (70-99) H 01/15/17 03:18 POC Glucose 114 (58-89) H 01/13/17 15:57 Calculated Osmolality 316 (280-300) H 01/15/17 03:18 Phosphorus 5.9 mg/dL (2.3-4.7) H 01/12/17 16:49 Direct Bilirubin 1.0 mg/dL (0.0-0.5) H 01/12/17 16:49 Indirect Bilirubin 1.8 mg/dL (0.0-1.2) H 01/12/17 16:49 C-Reactive Protein 402 mg/L (Less than 5) H 01/13/17 01:18 B-Natriuretic Peptide 313 pg/mL (0-100) H 01/12/17 16:49 Albumin 2.3 g/dL (3.5-5.0) L D 01/14/17 08:27 Globulin 4.6 g/dL (2.4-3.5) H 01/14/17 08:27 Albumin/Globulin Ratio 0.5 (1.1-2.2) L 01/14/17 08:27 Urine Clarity Cloudy (Clear) A 01/12/17 19:12 Urine Protein 30 mg/dL (Neg-Trace) H 01/12/17 19:12 Urine Bilirubin Small (Negative) H 01/12/17 19:12 Urine Microscopic RBC 3-5 per hpf (0-3) H 01/12/17 19:12 Urine Microscopic WBC 5-15 per hpf (0-3) H 01/12/17 19:12 Ur Squamous Epith Cells Many per lpf (None-Few) H 01/12/17 19:12 Hyaline Casts Moderate per lpf (None-Few) H 01/12/17 19:12 Granular Casts Few per lpf (None Seen) H 01/12/17 19:12 Ur Culture Indicated? YES (NO) A 01/12/17 19:12 - Microbiology Findings Microbiology Findings: Microbiology, Last 48 Hours 01/13/17 17:41 Influenza Types A,B Antigen (BRANDI) - Final Nasopharyngeal 01/12/17 19:12 Urine Culture - Final Urine,Clean Catch No growth. - Clinical Findings Intake & Output: Intake & Output 01/14/17 01/15/17 01/15/17 23:59 07:59 15:59 Intake Total 200 / 200 Output Total 1300 / 1300 550 / 550 Balance -1100 / -1100 -550 / -550 Weight 93.61 kg Consult Discharge Plan - Plan Referrals: NO,PCP [Primary Care Provider] -
[2017-01-15] MEDS ORDERED: Levalbuterol 1 PUFF INHALER IH PRN (10:04)
[2017-01-15] MEDS ORDERED: Acetaminophen 325 MG TABLET PO PRN (10:04)
[2017-01-15] MEDS ORDERED: Naloxone 0.4 MG/ML INJ IVP PRN (10:04)
[2017-01-15] MEDS ORDERED: Furosemide 40 MG/4 ML VIAL IVP SCH (17:00)
[2017-01-16] MEDS: MethylPREDNISolone 40 MG/ML VIAL IVP SCH ×4 (00:02→16:50)
[2017-01-16] MEDS: Ipratropium/Albuterol Neb 3 ML IH SCH ×4 (04:31→22:34)
[2017-01-16] MEDS: *HR* Heparin 5,000 UNIT/ML VIAL SQ SCH ×3 (05:02→22:14)
[2017-01-16 07:42] LABS: BUN/Creatinine Ratio 53 (6-26); Blood Urea Nitrogen 56 mg/dL (7-20); Carbon Dioxide 39 mEq/L (19-29); Chloride 96 mEq/L (98-109); Glucose 214 mg/dL (70-99); Magnesium 2.5 mg/dL (1.6-2.6); Osmolality,Calculated 316 (280-300); Potassium 2.9 mEq/L (3.5-4.5); Sodium 142 mEq/L (136-145); eGFR For African Americans > 60 (> 60); eGFR For Non-African Americans 53 (> 60)
[2017-01-16 07:44] LABS: Hemoglobin 13.3 g/dL (11.5-15.4); Mean Corpuscular HGB Conc 33.3 g/dL (31.6-35.5); Mean Corpuscular Hemoglobin 29.5 pg (28.0-33.3); Mean Corpuscular Volume 88.7 fL (83.0-100.0); Mean Platelet Volume 10.9 fL (9.4-12.4); Platelet Count 209 K/mcL (140-400); Red Blood Count 4.51 M/mcL (3.82-4.97); Red Cell Distribution Width 13.7 % (11.5-14.5)
[2017-01-16 08:31] LABS: C-Reactive Protein 124 mg/L (Less than 5)
[2017-01-16] MEDS ORDERED: Potassium Chloride 40 MEQ, Lidocaine 1% 2 ML in D5% in Water 500 ML IVPB ONE (08:35)
[2017-01-16] MEDS: Levofloxacin 750 MG/150 ML 750 MG/150 ML BAG IVPB SCH (08:37)
[2017-01-16 08:43] LABS: Lymphocytes # 2.5 K/mcL (0.6-4.6); Monocytes # 1.3 K/mcL (0.0-1.3); Neutrophils # 11.9 K/mcL (1.6-8.9); Platelet Estimate Normal (Normal); Reactive Lymphocytes Present (Not Present)
[2017-01-16 09:18] LABS: Hemoglobin A1C 6.1 %
[2017-01-16] MEDS ORDERED: *HR* Dextrose 50 % in Water (Syg) 50 ML SYRINGE IVP PRN (13:06)
[2017-01-16] MEDS ORDERED: Albuterol 2.5 MG/3 ML NEBULIZER IH PRN (13:06)
[2017-01-16] MEDS ORDERED: Dextrose Gel 15 GM PO PRN ×2 (13:06)
[2017-01-16] MEDS ORDERED: D5% in Water 1,000 ML IVC PRN (13:06)
--- NOTE | 2017-01-16 14:55 | Internal Med Progress Note ---
Date of Encounter: 01/16/17 Time of Encounter: 12:22 - Assessment and plan (1) Acute respiratory failure with hypoxia Current Visit: Yes Status: Acute Assessment and plan: Likely secondary to PNA Respiratory status improving will continue systemic steroids and bronchodilator support patient has extensive smoking history (25+years, quit 15years ago), may have underlying undiagnosed COPD, will benefit from outpatient PFTs continue abx O2 supplementation as needed monitor O2 sat (2) Community acquired pneumonia Current Visit: Yes Status: Acute Assessment and plan: Plan as listed above (3) Hyperglycemia Current Visit: Yes Status: Acute Assessment and plan: Likely secondary to steroids A1C: 6.1 will start ss insulin while on steroid therapy inpatient closely monitor FS and BG (4) Hypokalemia Current Visit: Yes Status: Acute Assessment and plan: K supplemented continue to monitor electrolytes and replace as needed (5) DIANA (acute kidney injury) Current Visit: Yes Status: Resolved Assessment and plan: Renal function at baseline continue to monitor (6) DVT prophylaxis Current Visit: Yes Status: Acute Assessment and plan: Heparin SQ - Subjective Interval history: Patient seen and examined with family present at bedside. Patient resting in bed and reports of feeling better compared to previous day. She is currently saturating well on nasal cannula. She was transferred to the floor from the ICU yesterday evening. No overnight issues reported. - Constitutional Vitals: Temp Pulse Resp BP Pulse Ox 98.1 F 106 20 135/85 90 01/16/17 11:46 01/16/17 11:46 01/16/17 11:46 01/16/17 11:46 01/16/17 11:46 General appearance: Present: A&O X 3, no acute distress, obese, answers questions appropriately - Head Head exam: Present: atraumatic, normocephalic - Respiratory Respiratory exam: Present: decreased breath sounds (decreased inspiratory effort ). Absent: respiratory distress, wheezes - Cardiovascular Cardiovascular exam: Present: RRR, +S1, +S2. Absent: diastolic murmur, gallop, rubs, systolic murmur - GI/Abdominal GI/Abdominal exam: Present: normal bowel sounds, soft, no peritoneal signs. Absent: distended, tenderness - Extremities Exam Extremities exam: Present: warm, radial pulses palpable and symetrical. Absent : calf tenderness, cyanotic, pedal edema - Neurological Exam Neurological exam: Present: alert, oriented X3 - Psychiatric Psychiatric exam: Present: normal affect, normal mood Internal Medicine: Result - Labs CBC & Chem 7: 01/16/17 07:17 01/16/17 07:17 Labs: Short CBC 01/16/17 Range/Units 07:17 WBC 16.8 H (4.3-11.1) K/mcL Hgb 13.3 (11.5-15.4) g/dL Hct 40.0 (35.3-44.9) % Plt Count 209 (140-400) K/mcL Neutrophils # 11.9 H (1.6-8.9) K/mcL BMP 01/16/17 07:17 Sodium 142 Potassium 2.9 L Chloride 96 L Carbon Dioxide 39 H BUN 56 H Creatinine 1.05 Glucose 214 H Calcium 9.0 - ABG Interpretation ABG results: ABG ABG pH 7.28 pH Units (7.32-7.45) L 01/12/17 17:22 ABG pCO2 46 mmHg (35-45) H 01/12/17 17:22 ABG pO2 70 mmHg (85-104) L 01/12/17 17:22 ABG O2 Saturation 91 % (95-98) L 01/12/17 17:22 PT/INR, D-dimer PT 16.5 Seconds (9.4-12.1) H 01/12/17 16:49 Consult Discharge Plan - Plan Referrals: NO,PCP [Primary Care Provider] -
[2017-01-16] MEDS: Insulin LISPRO 300 UNITS/3 ML VIAL SQ SCH ×2 (16:51→22:15)
[2017-01-16] MEDS ORDERED: Simethicone 80 MG TAB.CHEW PO PRN (21:25)
[2017-01-17] MEDS: MethylPREDNISolone 40 MG/ML VIAL IVP SCH ×4 (00:50→16:59)
[2017-01-17 03:19] LABS: Hematocrit 41.5 % (35.3-44.9); Hemoglobin 13.5 g/dL (11.5-15.4); Mean Corpuscular HGB Conc 32.5 g/dL (31.6-35.5); Mean Corpuscular Hemoglobin 29.7 pg (28.0-33.3); Mean Corpuscular Volume 91.4 fL (83.0-100.0); Mean Platelet Volume 11.2 fL (9.4-12.4); Platelet Count 205 K/mcL (140-400); Red Blood Count 4.54 M/mcL (3.82-4.97); Red Cell Distribution Width 14.3 % (11.5-14.5)
[2017-01-17 03:33] LABS: BUN/Creatinine Ratio 42 (6-26); Calcium 8.9 mg/dL (8.6-10.8); Carbon Dioxide 36 mEq/L (19-29); Chloride 101 mEq/L (98-109); Glucose 208 mg/dL (70-99); Magnesium 2.6 mg/dL (1.6-2.6); Osmolality,Calculated 315 (280-300); Phosphorous 3.4 mg/dL (2.3-4.7); Potassium 3.6 mEq/L (3.5-4.5); Sodium 144 mEq/L (136-145); eGFR For African Americans > 60 (> 60); eGFR For Non-African Americans 53 (> 60)
[2017-01-17 03:35] LABS: Blood Urea Nitrogen 44 mg/dL (7-20)
[2017-01-17 03:51] LABS: Lymphocytes # 4.4 K/mcL (0.6-4.6); Neutrophils # 13.7 K/mcL (1.6-8.9); Platelet Estimate Normal (Normal)
[2017-01-17 03:52] LABS: Reactive Lymphocytes Present (Not Present)
[2017-01-17] MEDS: Ipratropium/Albuterol Neb 3 ML IH SCH ×4 (04:41→22:50)
[2017-01-17] MEDS: *HR* Heparin 5,000 UNIT/ML VIAL SQ SCH ×3 (06:18→21:11)
[2017-01-17] MEDS: Insulin LISPRO 300 UNITS/3 ML VIAL SQ SCH ×4 (09:06→21:12)
[2017-01-17] MEDS: Levofloxacin 750 MG/150 ML 750 MG/150 ML BAG IVPB SCH (09:07)
[2017-01-17] MEDS ORDERED: Simethicone 80 MG TAB.CHEW PO PRN (09:25)
--- NOTE | 2017-01-17 13:00 | Internal Med Progress Note ---
Date of Encounter: 01/17/17 Time of Encounter: 12:58 - Assessment and plan (1) Acute respiratory failure with hypoxia Current Visit: Yes Status: Acute Assessment and plan: Likely secondary to PNA Respiratory status improving will continue systemic steroids and bronchodilator support, decreased to Solumedrol 40mg IV q12h patient has extensive smoking history (25+years, quit 15years ago), may have underlying undiagnosed COPD, will benefit from outpatient PFTs continue abx O2 supplementation as needed monitor O2 sat (2) Community acquired pneumonia Current Visit: Yes Status: Acute Assessment and plan: Plan as listed above worsening leukocytosis likely secondary to steroids clinically improving CXR shows improvement pt encouraged to use incentive spirometry (3) Hyperglycemia Current Visit: Yes Status: Acute Assessment and plan: Likely secondary to steroids A1C: 6.1 Continue ss insulin while on steroid therapy inpatient closely monitor FS and BG (4) Hypokalemia Current Visit: Yes Status: Resolved (5) DIANA (acute kidney injury) Current Visit: Yes Status: Resolved (6) DVT prophylaxis Current Visit: Yes Status: Acute Assessment and plan: Heparin SQ - Subjective Interval history: Patient seen and examined with family present at bedside. Patient resting in bed and reports of feeling better compared to previous day. She is currently saturating well on nasal cannula. Reports of mild dyspepsia and requests Pepcid which she takes at home. No overnight issues were reported. - Constitutional Vitals: Temp Pulse Resp BP Pulse Ox 98.0 F 93 17 145/79 92 01/17/17 11:42 01/17/17 11:42 01/17/17 11:42 01/17/17 11:42 01/17/17 11:42 General appearance: Present: A&O X 3, no acute distress, obese, answers questions appropriately - Head Head exam: Present: atraumatic, normocephalic - Eye Eye exam: Present: normal appearance, conjuntiva pink, sclera anicteric - Respiratory Respiratory exam: Present: decreased breath sounds. Absent: respiratory distress, tachypnea - Cardiovascular Cardiovascular exam: Present: RRR, +S1, +S2. Absent: diastolic murmur, gallop, rubs, systolic murmur - GI/Abdominal GI/Abdominal exam: Present: normal bowel sounds, soft, no peritoneal signs. Absent: distended, tenderness - Extremities Exam Extremities exam: Present: warm, radial pulses palpable and symetrical. Absent : calf tenderness, pedal edema - Neurological Exam Neurological exam: Present: alert, oriented X3 - Psychiatric Psychiatric exam: Present: normal affect, normal mood Internal Medicine: Result - Labs CBC & Chem 7: 01/17/17 03:03 01/17/17 03:03 Labs: Short CBC 01/17/17 Range/Units 03:03 WBC 20.2 H (4.3-11.1) K/mcL Hgb 13.5 (11.5-15.4) g/dL Hct 41.5 (35.3-44.9) % Plt Count 205 (140-400) K/mcL Neutrophils # 13.7 H (1.6-8.9) K/mcL BMP 01/17/17 03:03 Sodium 144 Potassium 3.6 Chloride 101 Carbon Dioxide 36 H BUN 44 H D Creatinine 1.04 Glucose 208 H Calcium 8.9 - ABG Interpretation ABG results: ABG ABG pH 7.28 pH Units (7.32-7.45) L 01/12/17 17:22 ABG pCO2 46 mmHg (35-45) H 01/12/17 17:22 ABG pO2 70 mmHg (85-104) L 01/12/17 17:22 ABG O2 Saturation 91 % (95-98) L 01/12/17 17:22 PT/INR, D-dimer PT 16.5 Seconds (9.4-12.1) H 01/12/17 16:49 - Impressions Impressions Chest X-Ray 01/17/17 07:00 IMPRESSION: Continued improved aeration in the right lung with decreased right upper lobe opacity. Continued radiographic follow-up recommended to ensure resolution. D/ / Iraida Morales MD / Iraida Morales MD Interpreting Provider: Iraida Morales MD Consult Discharge Plan - Plan Referrals: Katherin Car MD [Partnered Physician] - 02/22/17 9:30 am (Please follow up as schedule to get established for your PCP ) NO,PCP [Primary Care Provider] -
[2017-01-17] MEDS: Famotidine 20 MG TABLET PO SCH (21:12)
[2017-01-18] MEDS: Ipratropium/Albuterol Neb 3 ML IH SCH ×4 (04:29→22:20)
[2017-01-18] MEDS: MethylPREDNISolone 40 MG/ML VIAL IVP SCH ×2 (05:03→16:33)
[2017-01-18] MEDS: *HR* Heparin 5,000 UNIT/ML VIAL SQ SCH ×3 (05:03→21:31)
[2017-01-18 05:17] LABS: Hematocrit 42.9 % (35.3-44.9); Hemoglobin 13.4 g/dL (11.5-15.4); Mean Corpuscular HGB Conc 31.2 g/dL (31.6-35.5); Mean Corpuscular Hemoglobin 28.9 pg (28.0-33.3); Mean Corpuscular Volume 92.7 fL (83.0-100.0); Nucleated Red Blood Cells 0.1 /100 WBC (0); Platelet Count 204 K/mcL (140-400); Red Blood Count 4.63 M/mcL (3.82-4.97); Red Cell Distribution Width 14.5 % (11.5-14.5)
[2017-01-18 05:40] LABS: BUN/Creatinine Ratio 46 (6-26); Blood Urea Nitrogen 39 mg/dL (7-20); Calcium 8.7 mg/dL (8.6-10.8); Carbon Dioxide 35 mEq/L (19-29); Chloride 104 mEq/L (98-109); Glucose 153 mg/dL (70-99); Magnesium 2.3 mg/dL (1.6-2.6); Osmolality,Calculated 316 (280-300); Potassium 3.6 mEq/L (3.5-4.5); Sodium 147 mEq/L (136-145); eGFR For African Americans > 60 (> 60); eGFR For Non-African Americans > 60 (> 60)
[2017-01-18 05:48] LABS: Lymphocytes # 3.3 K/mcL (0.6-4.6); Monocytes # 1.5 K/mcL (0.0-1.3); Neutrophils # 15.5 K/mcL (1.6-8.9); Platelet Estimate Normal (Normal); Reactive Lymphocytes Present (Not Present)
[2017-01-18] MEDS: Famotidine 20 MG TABLET PO SCH ×2 (08:50→21:31)
[2017-01-18] MEDS: Levofloxacin 750 MG/150 ML 750 MG/150 ML BAG IVPB SCH (08:51)
[2017-01-18] MEDS: Insulin LISPRO 300 UNITS/3 ML VIAL SQ SCH ×4 (08:52→21:31)
--- NOTE | 2017-01-18 13:15 | Internal Med Progress Note ---
Date of Encounter: 01/18/17 Time of Encounter: 10:25 - Assessment and plan (1) Acute respiratory failure with hypoxia Current Visit: Yes Status: Acute Assessment and plan: Likely secondary to PNA Respiratory status improving will continue systemic steroids and bronchodilator support, decreased to Solumedrol 40mg IV q12h, will start Prednison in am patient has extensive smoking history (25+years, quit 15years ago), may have underlying undiagnosed COPD, will benefit from outpatient PFTs continue abx O2 supplementation as needed monitor O2 sat (2) Community acquired pneumonia Current Visit: Yes Status: Acute Assessment and plan: Plan as listed above worsening leukocytosis likely secondary to steroids clinically improving CXR shows improvement pt encouraged to use incentive spirometry (3) Hyperglycemia Current Visit: Yes Status: Acute Assessment and plan: Likely secondary to steroids A1C: 6.1 Continue ss insulin while on steroid therapy inpatient closely monitor FS and BG (4) Hypokalemia Current Visit: Yes Status: Resolved (5) DIANA (acute kidney injury) Current Visit: Yes Status: Resolved Assessment and plan: Renal function at baseline continue to monitor (6) DVT prophylaxis Current Visit: Yes Status: Acute Assessment and plan: Heparin SQ - Subjective Interval history: Patient seen and examined with family present at bedside. Patient resting in chair and reports of feeling better. Educated about incentive spirometry. Pt noted to be saturating well on 4L NC. - Constitutional Vitals: Temp Pulse Resp BP Pulse Ox 98.1 F 89 16 160/102 92 01/18/17 11:40 01/18/17 11:40 01/18/17 11:40 01/18/17 11:40 01/18/17 11:40 General appearance: Present: A&O X 3, no acute distress, obese, answers questions appropriately - Head Head exam: Present: atraumatic, normocephalic - Eye Eye exam: Present: normal appearance, conjuntiva pink, sclera anicteric - Respiratory Respiratory exam: Absent: respiratory distress, wheezes - Cardiovascular Cardiovascular exam: Present: RRR, +S1, +S2. Absent: diastolic murmur, gallop, rubs, systolic murmur - GI/Abdominal GI/Abdominal exam: Present: normal bowel sounds, soft, no peritoneal signs. Absent: distended, tenderness - Extremities Exam Extremities exam: Present: warm, radial pulses palpable and symetrical. Absent : calf tenderness, pedal edema - Neurological Exam Neurological exam: Present: alert, oriented X3 - Psychiatric Psychiatric exam: Present: normal affect, normal mood Internal Medicine: Result - Labs CBC & Chem 7: 01/18/17 04:37 01/18/17 04:37 Labs: Short CBC 01/18/17 Range/Units 04:37 WBC 20.7 H (4.3-11.1) K/mcL Hgb 13.4 (11.5-15.4) g/dL Hct 42.9 (35.3-44.9) % Plt Count 204 (140-400) K/mcL Neutrophils # 15.5 H (1.6-8.9) K/mcL BMP 01/18/17 04:37 Sodium 147 H Potassium 3.6 Chloride 104 Carbon Dioxide 35 H BUN 39 H Creatinine 0.85 Glucose 153 H Calcium 8.7 - ABG Interpretation ABG results: ABG ABG pH 7.28 pH Units (7.32-7.45) L 01/12/17 17:22 ABG pCO2 46 mmHg (35-45) H 01/12/17 17:22 ABG pO2 70 mmHg (85-104) L 01/12/17 17:22 ABG O2 Saturation 91 % (95-98) L 01/12/17 17:22 PT/INR, D-dimer PT 16.5 Seconds (9.4-12.1) H 01/12/17 16:49 Consult Discharge Plan - Plan Referrals: Katherin Car MD [Partnered Physician] - 02/22/17 9:30 am (Please follow up as schedule to get established for your PCP )
[2017-01-19] MEDS: Ipratropium/Albuterol Neb 3 ML IH SCH ×4 (04:09→23:36)
[2017-01-19 04:57] LABS: Hematocrit 40.4 % (35.3-44.9); Mean Corpuscular HGB Conc 32.2 g/dL (31.6-35.5); Mean Corpuscular Volume 93.3 fL (83.0-100.0); Mean Platelet Volume 11.6 fL (9.4-12.4); Platelet Count 181 K/mcL (140-400); Red Blood Count 4.33 M/mcL (3.82-4.97); Red Cell Distribution Width 14.5 % (11.5-14.5)
[2017-01-19 05:16] LABS: BUN/Creatinine Ratio 42 (6-26); Blood Urea Nitrogen 37 mg/dL (7-20); Calcium 8.3 mg/dL (8.6-10.8); Carbon Dioxide 33 mEq/L (19-29); Chloride 103 mEq/L (98-109); Glucose 171 mg/dL (70-99); Magnesium 2.1 mg/dL (1.6-2.6); Osmolality,Calculated 313 (280-300); Phosphorous 4.1 mg/dL (2.3-4.7); Potassium 3.7 mEq/L (3.5-4.5); Sodium 145 mEq/L (136-145); eGFR For African Americans > 60 (> 60); eGFR For Non-African Americans > 60 (> 60)
[2017-01-19] MEDS: *HR* Heparin 5,000 UNIT/ML VIAL SQ SCH ×3 (06:06→22:37)
[2017-01-19 06:21] LABS: Eosinophils # 0.3 K/mcL (0.0-0.6); Large Platelets Present (Not Present); Neutrophils # 12.4 K/mcL (1.6-8.9); Platelet Estimate Normal (Normal); Reactive Lymphocytes Present (Not Present)
[2017-01-19] MEDS: Insulin LISPRO 300 UNITS/3 ML VIAL SQ SCH ×4 (08:12→22:37)
[2017-01-19] MEDS: Famotidine 20 MG TABLET PO SCH ×2 (08:12→22:38)
[2017-01-19] MEDS: predniSONE 20 MG TABLET PO SCH (08:13)
[2017-01-19] MEDS: Levofloxacin 750 MG/150 ML 750 MG/150 ML BAG IVPB SCH (08:14)
--- NOTE | 2017-01-19 11:26 | Internal Med Progress Note ---
Date of Encounter: 01/19/17 Time of Encounter: 11:24 - Assessment and plan (1) Acute respiratory failure with hypoxia Current Visit: Yes Status: Acute Assessment and plan: Likely secondary to PNA Respiratory status improving will continue systemic steroids and bronchodilator support, started Prednisone patient has extensive smoking history (25+years, quit 15years ago), may have underlying undiagnosed COPD, will benefit from outpatient PFTs continue abx O2 supplementation as needed monitor O2 sat (2) Community acquired pneumonia Current Visit: Yes Status: Acute Assessment and plan: Plan as listed above worsening leukocytosis likely secondary to steroids, improving clinically improving CXR shows improvement pt encouraged to use incentive spirometry (3) Hyperglycemia Current Visit: Yes Status: Acute Assessment and plan: Likely secondary to steroids A1C: 6.1 Continue ss insulin while on steroid therapy inpatient closely monitor FS and BG (4) Hypokalemia Current Visit: Yes Status: Resolved (5) DIANA (acute kidney injury) Current Visit: Yes Status: Resolved Assessment and plan: Renal function at baseline continue to monitor (6) DVT prophylaxis Current Visit: Yes Status: Acute Assessment and plan: Heparin SQ - Subjective Interval history: Patient seen and examined. REsting in bed and reports of feeling better. Currently saturating well on 2L nasal cannula. No overnight issues were reported. Will consult social service worker for arrangement of home oxygen and likely discharge in am if remains stable over night. - Constitutional Vitals: Temp Pulse Resp BP Pulse Ox 97.4 F L 81 16 143/81 92 01/19/17 07:47 01/19/17 07:47 01/19/17 11:04 01/19/17 07:47 01/19/17 11:04 General appearance: Present: A&O X 3, no acute distress, obese, answers questions appropriately - Head Head exam: Present: atraumatic, normocephalic - Eye Eye exam: Present: normal appearance, conjuntiva pink, sclera anicteric - Respiratory Respiratory exam: Present: CTAB. Absent: accessory muscle use, rales, rhonchi, wheezes - Cardiovascular Cardiovascular exam: Present: RRR, +S1, +S2. Absent: diastolic murmur, gallop, rubs, systolic murmur - GI/Abdominal GI/Abdominal exam: Present: normal bowel sounds, soft, no peritoneal signs. Absent: distended, tenderness - Extremities Exam Extremities exam: Present: warm, radial pulses palpable and symetrical. Absent : calf tenderness, cyanotic, pedal edema - Neurological Exam Neurological exam: Present: alert, oriented X3 - Psychiatric Psychiatric exam: Present: normal affect, normal mood Internal Medicine: Result - Labs CBC & Chem 7: 01/19/17 03:09 01/19/17 03:09 Labs: Short CBC 01/19/17 Range/Units 03:09 WBC 16.8 H (4.3-11.1) K/mcL Hgb 13.0 (11.5-15.4) g/dL Hct 40.4 (35.3-44.9) % Plt Count 181 (140-400) K/mcL Neutrophils # 12.4 H (1.6-8.9) K/mcL BMP 01/19/17 03:09 Sodium 145 Potassium 3.7 Chloride 103 Carbon Dioxide 33 H BUN 37 H Creatinine 0.89 Glucose 171 H Calcium 8.3 L - ABG Interpretation ABG results: ABG ABG pH 7.28 pH Units (7.32-7.45) L 01/12/17 17:22 ABG pCO2 46 mmHg (35-45) H 01/12/17 17:22 ABG pO2 70 mmHg (85-104) L 01/12/17 17:22 ABG O2 Saturation 91 % (95-98) L 01/12/17 17:22 PT/INR, D-dimer PT 16.5 Seconds (9.4-12.1) H 01/12/17 16:49 Consult Discharge Plan - Plan Referrals: Katherin Car MD [Partnered Physician] - 02/22/17 9:30 am (Please follow up as schedule to get established for your PCP )
[2017-01-20] MEDS: Ipratropium/Albuterol Neb 3 ML IH SCH ×4 (04:17→23:01)
[2017-01-20] MEDS: *HR* Heparin 5,000 UNIT/ML VIAL SQ SCH ×3 (05:24→21:07)
[2017-01-20 06:13] LABS: Hematocrit 41.2 % (35.3-44.9); Hemoglobin 13.4 g/dL (11.5-15.4); Mean Corpuscular HGB Conc 32.5 g/dL (31.6-35.5); Mean Corpuscular Volume 92.2 fL (83.0-100.0); Mean Platelet Volume 11.4 fL (9.4-12.4); Platelet Count 170 K/mcL (140-400); Red Blood Count 4.47 M/mcL (3.82-4.97); Red Cell Distribution Width 14.3 % (11.5-14.5)
[2017-01-20 06:23] LABS: BUN/Creatinine Ratio 42 (6-26); Blood Urea Nitrogen 36 mg/dL (7-20); Calcium 8.5 mg/dL (8.6-10.8); Carbon Dioxide 30 mEq/L (19-29); Chloride 107 mEq/L (98-109); Glucose 109 mg/dL (70-99); Magnesium 2.5 mg/dL (1.6-2.6); Osmolality,Calculated 307 (280-300); Phosphorous 3.4 mg/dL (2.3-4.7); Potassium 4.1 mEq/L (3.5-4.5); Sodium 144 mEq/L (136-145); eGFR For African Americans > 60 (> 60); eGFR For Non-African Americans > 60 (> 60)
[2017-01-20 06:44] LABS: Lymphocytes # 2.7 K/mcL (0.6-4.6); Monocytes # 0.6 K/mcL (0.0-1.3); Neutrophils # 11.6 K/mcL (1.6-8.9); Platelet Estimate Normal (Normal)
[2017-01-20] MEDS: predniSONE 20 MG TABLET PO SCH (08:08)
[2017-01-20] MEDS: Famotidine 20 MG TABLET PO SCH ×2 (08:08→21:07)
[2017-01-20] MEDS: Insulin LISPRO 300 UNITS/3 ML VIAL SQ SCH ×4 (08:13→21:06)
[2017-01-20] MEDS: Levofloxacin 750 MG/150 ML 750 MG/150 ML BAG IVPB SCH (08:13)
--- NOTE | 2017-01-20 11:49 | Internal Med Progress Note ---
Date of Encounter: 01/20/17 Time of Encounter: 11:43 - Assessment and plan (1) Acute respiratory failure with hypoxia Current Visit: Yes Status: Acute Assessment and plan: Likely secondary to PNA Respiratory status improving will continue systemic steroids and bronchodilator support, continue Prednisone patient has extensive smoking history (25+years, quit 15years ago), may have underlying undiagnosed COPD, will benefit from outpatient PFTs continue abx O2 supplementation as needed monitor O2 sat discharge pending home O2 arrangement (2) Community acquired pneumonia Current Visit: Yes Status: Acute (3) Hyperglycemia Current Visit: Yes Status: Acute Assessment and plan: Likely secondary to steroids A1C: 6.1 Continue ss insulin while on steroid therapy inpatient closely monitor FS and BG (4) Hypokalemia Current Visit: Yes Status: Resolved (5) DIANA (acute kidney injury) Current Visit: Yes Status: Resolved (6) DVT prophylaxis Current Visit: Yes Status: Acute Assessment and plan: Heparin SQ - Subjective Interval history: Patient seen and examined with family present at bedside. Saturating well on 2L NC. No overnight events reported. No complains at this time. Discharge planning started Discharge pending home O2 placement - Constitutional Vitals: Temp Pulse Resp BP Pulse Ox 97.4 F L 81 20 138/85 94 01/20/17 10:53 01/20/17 10:53 01/20/17 10:53 01/20/17 10:53 01/20/17 10:53 General appearance: Present: A&O X 3, no acute distress, obese, answers questions appropriately - Head Head exam: Present: atraumatic, normocephalic - Eye Eye exam: Present: normal appearance, conjuntiva pink, sclera anicteric - Respiratory Respiratory exam: Absent: respiratory distress, wheezes - Cardiovascular Cardiovascular exam: Present: RRR, +S1, +S2. Absent: diastolic murmur, gallop, rubs, systolic murmur - GI/Abdominal GI/Abdominal exam: Present: normal bowel sounds, soft, no peritoneal signs. Absent: distended, tenderness - Extremities Exam Extremities exam: Present: warm, radial pulses palpable and symetrical. Absent : calf tenderness, cyanotic, pedal edema - Neurological Exam Neurological exam: Present: alert, oriented X3 - Psychiatric Psychiatric exam: Present: normal affect, normal mood Internal Medicine: Result - Labs CBC & Chem 7: 01/20/17 05:39 01/20/17 05:39 Labs: Short CBC 01/20/17 Range/Units 05:39 WBC 14.9 H (4.3-11.1) K/mcL Hgb 13.4 (11.5-15.4) g/dL Hct 41.2 (35.3-44.9) % Plt Count 170 (140-400) K/mcL Neutrophils # 11.6 H (1.6-8.9) K/mcL BMP 01/20/17 05:39 Sodium 144 Potassium 4.1 Chloride 107 Carbon Dioxide 30 H BUN 36 H Creatinine 0.85 Glucose 109 H Calcium 8.5 L - ABG Interpretation ABG results: ABG ABG pH 7.28 pH Units (7.32-7.45) L 01/12/17 17:22 ABG pCO2 46 mmHg (35-45) H 01/12/17 17:22 ABG pO2 70 mmHg (85-104) L 01/12/17 17:22 ABG O2 Saturation 91 % (95-98) L 01/12/17 17:22 PT/INR, D-dimer PT 16.5 Seconds (9.4-12.1) H 01/12/17 16:49 Consult Discharge Plan - Plan Referrals: Katherin Car MD [Partnered Physician] - 02/22/17 9:30 am (Please follow up as schedule to get established for your PCP )
[2017-01-21] MEDS: Ipratropium/Albuterol Neb 3 ML IH SCH ×2 (04:27→10:20)
[2017-01-21 05:03] LABS: Basophils % 0.2 %; Eosinophils % 0.2 %; Hematocrit 40.7 % (35.3-44.9); Hemoglobin 12.8 g/dL (11.5-15.4); Immature Granulocytes % 4.3 % (0-4); Lymphocytes # 2.6 K/mcL (0.6-4.6); Lymphocytes % 20.6 %; Mean Corpuscular HGB Conc 31.4 g/dL (31.6-35.5); Mean Corpuscular Volume 92.3 fL (83.0-100.0); Monocytes # 0.6 K/mcL (0.0-1.3); Monocytes % 4.7 %; Neutrophils # 8.7 K/mcL (1.6-8.9); Platelet Count 172 K/mcL (140-400); Red Blood Count 4.41 M/mcL (3.82-4.97); Red Cell Distribution Width 14.3 % (11.5-14.5)
[2017-01-21] MEDS: *HR* Heparin 5,000 UNIT/ML VIAL SQ SCH (05:12)
[2017-01-21 05:16] LABS: BUN/Creatinine Ratio 41 (6-26); Blood Urea Nitrogen 32 mg/dL (7-20); Calcium 8.5 mg/dL (8.6-10.8); Carbon Dioxide 31 mEq/L (19-29); Chloride 108 mEq/L (98-109); Glucose 117 mg/dL (70-99); Magnesium 2.2 mg/dL (1.6-2.6); Osmolality,Calculated 306 (280-300); Phosphorous 3.6 mg/dL (2.3-4.7); Potassium 4.1 mEq/L (3.5-4.5); Sodium 144 mEq/L (136-145); eGFR For African Americans > 60 (> 60); eGFR For Non-African Americans > 60 (> 60)
[2017-01-21] MEDS: Famotidine 20 MG TABLET PO SCH (08:22)
[2017-01-21] MEDS: predniSONE 20 MG TABLET PO SCH (08:22)
[2017-01-21] MEDS: Levofloxacin 750 MG/150 ML 750 MG/150 ML BAG IVPB SCH (08:23)
[2017-01-21] MEDS: Insulin LISPRO 300 UNITS/3 ML VIAL SQ SCH ×2 (08:24→12:02)
--- NOTE | 2017-01-21 10:30 | Discharge Summary ---
Date of Encounter: 01/21/17 Time of Encounter: 09:20 - Discharge Diagnosis (1) Acute respiratory failure with hypoxia Priority: Primary Status: Resolved (2) Community acquired pneumonia Priority: Primary Status: Acute (3) Hyperglycemia Priority: Secondary Status: Acute (4) Hypokalemia Priority: Secondary Status: Resolved (5) DIANA (acute kidney injury) Priority: Secondary Status: Resolved (6) DVT prophylaxis Priority: Secondary Status: Acute - Discharge Medications Prescriptions: GuaiFENesin ER [Mucinex] 600 mg PO BID PRN #20 tbbp.12hr PRN Reason: cough/congestion PredniSONE 60 mg PO DAILY #9 tablet Home Medications: Ipratropium/Albuterol Neb [Duoneb] 3 ml IH Q4HR PRN #50 vial.neb 10/29/16 [Rx] GuaiFENesin ER [Mucinex] 600 mg PO BID PRN #20 tbbp.12hr 01/21/17 [Rx] PredniSONE 60 mg PO DAILY #9 tablet 01/21/17 [Rx] Allergies/Adverse Reactions: Allergies No Known Allergies Allergy (Verified 10/29/16 11:40) Date of admission: 01/12/17 18:25 Primary care physician: PCP NO Consults: 01/12/17 22:51 Consult to Pulmonology [CONS] Routine Consulting Provider: [facility] Reason for Consult: Bilateral pneumonia; respiratory failure Call Completed: No Discharging clinician: Deirdre Weldon Anticipated date of discharge: 01/21/17 - Patient Status Disposition: Home, Self-Care Condition: Serious Functional capacity at discharge: independent ambulation Overall status at discharge: patient is back to baseline - Discharge Instructions Instructions: Acute Respiratory Distress Syndrome (DC), Sepsis (DC), Pneumonia (DC) Follow Up With: Katherin Car MD [Partnered Physician] - 02/22/17 9:30 am (Please follow up as schedule to get established for your PCP ) Ilda Kan MD [Partnered Physician] - 02/11/17 11:30 am (Please follow up as schedule...) Forms: Inpatient Work/School Release Additional Instructions: Please follow up with your primary care physician and astronaut mission specialist within one week after your discharge from the hospital. Please continue to take Prednisone as prescribed. Please wear home Oxygen at all times. Please resume all your home medications as prescribed by your primary care physician. - Diet and Activity Activity: resume usual activities as tolerated, wear oxygen at all times Diet: low salt diet Hospital course: Ms. Estrada is a 66 year old female with no reported med history was admitted for acute respiratory failure secondary to PNA. She reported of having 25+years of smoking history but has never been diagnosed with COPD. She was initially admitted to the ICU and transferred to the [facility] once stable. She underwent 6 minute walk test for home O2 qualification and qualified for home O2. She has completed her abx course and will be discharged on a long Prednisone taper. She is to follow up with PCP and astronaut mission specialist after her discharge from the hospital. Currently she is hemodynamically stable and will be discharged to home. Patient demonstrates understanding of her diagnosis and agree with the discharge care and plan. - Time Spent with Patient Total time spent providing and/or coordinating discharge services: Less than 30 minutes - Constitutional Vitals: Temp Pulse Resp BP Pulse Ox 97.8 F 70 20 126/78 94 01/21/17 07:39 01/21/17 07:39 01/21/17 07:39 01/21/17 07:39 01/21/17 08:32 General appearance: Present: A&O X 3, no acute distress, obese, answers questions appropriately - Head Head exam: Present: atraumatic, normocephalic - Eye Eye exam: Present: normal appearance, conjuntiva pink, sclera anicteric - Respiratory Respiratory exam: Present: CTAB. Absent: accessory muscle use, rales, rhonchi, wheezes - Cardiovascular Cardiovascular exam: Present: RRR, +S1, +S2. Absent: diastolic murmur, gallop, rubs, systolic murmur - GI/Abdominal GI/Abdominal exam: Present: normal bowel sounds, soft, no peritoneal signs. Absent: distended, tenderness - Extremities Exam Extremities exam: Present: warm, radial pulses palpable and symetrical. Absent : calf tenderness, cyanotic, pedal edema - Neurological Exam Neurological exam: Present: alert, oriented X3 - Psychiatric Psychiatric exam: Present: normal affect, normal mood
[2017-01-21 10:57] VITALS: BP 120/76
== END 2017-01-21 13:52 | disposition home or self-care (01) | DRG 871 ==
LOC: EMEROO 16:21 → 2NNU 18:25 → SUATTDRO 18:25 → 2NNU 20:11 → ICNU 01-13 11:28 → 2ANU 01-15 10:03
PROVIDERS: ADMIT Internal Medicine; ATTEND Internal Medicine